=== PATIENT | female | born 2000 | race African-American/Black ===

== ENCOUNTER 2020-05-22 07:03 | Emergency (ER) | payer SELFPAY ==
[~2020-05-22 07:03] MED LIST: CARAFATE S500 MG/TSP PO; RANITIDINE HCL150 M1 PO; ZOFRAN4 MG PO
[2020-05-22] MEDS ORDERED: AMOXICILLIN875 MG PO (07:59)
[2020-05-22] MEDS ORDERED: PREDNISONE 20MG20 MG PO (07:59)
== END 2020-05-22 08:05 | disposition home or self-care (01) ==
LOC: FER 07:03
DX: J02.9 Acute pharyngitis, unspecified (principal)
CPT/HCPCS: 87880; 99283; J7512

== ENCOUNTER 2020-08-08 11:35 | Emergency (ER) | payer OTHER ==
[~2020-08-08 11:35] MED LIST changes: +AMOXICILLIN875 MG PO; +PREDNISONE 20MG20 MG PO
[2020-08-08 12:42] LABS: BASOPHIL 0.6 % (0-2); EOSINOPHIL 1.1 % (0-5); HGB 13.4 g/dl (12.5-16.0); LYMPHOCYTE 41.8 % (15-48); MCH 31.8 pg (25.0-31.0); MCHC 34.4 g/dL (32.0-36.0); MCV 92.6 fL (78.0-100.0); MONOCYTE 7.6 % (0-12); MPV 9.6 fL (6.0-9.5); NEUTROPHIL 48.6 % (41-80); NRBC 0; PLT 296 K/uL (150-400); RBC 4.21 M/uL (4.20-5.40); RDW 11.9 % (11.5-14.0); WBC 3.5 K/uL (4.0-10.5)
[2020-08-08 12:43] LABS: BILIRUBIN NEGATIVE (NEGATIVE); BLOOD NEGATIVE Ery/uL (NEGATIVE); CLARITY CLEAR (CLEAR); COLOR YELLOW (YELLOW); GLUCOSE (U) NORMAL (NORMAL); LEUKOCYTES NEGATIVE Leu/uL (NEGATIVE); NITRITE NEGATIVE (NEGATIVE); PROTEIN NEGATIVE (NEGATIVE); UROBILINOGEN 0.2 mg/dL (0.2-1.0)
[2020-08-08 12:45] LABS: HCG (URINE) SCREEN NEGATIVE (NEGATIVE)
[2020-08-08 12:49] LABS: INR 1.18 (0.9-1.2); PROTHROMBIN TIME 14.2 SECONDS (11.4-13.6); PTT 29.5 SECONDS (22.2-34.7)
[2020-08-08 12:50] LABS: D-DIMER 0.27 ug/mLFEU (0.00-0.41)
[2020-08-08 13:12] LABS: ALBUMIN 4.1 g/dL (3.4-5.0); BILIRUBIN - TOTAL 0.7 mg/dL (0.2-1.0); BUN/CREAT RATIO (CALC) 9.3 RATIO; CREATININE 0.86 mg/dL (0.51-0.95); GLOBULIN (CALCULATION) 3.2 g/dL; POTASSIUM 4.4 mmol/L (3.5-5.1); PRO-BNP 15 pg/mL (<125); TOTAL PROTEIN 7.3 g/dL (6.4-8.2)
[2020-08-08] MEDS ORDERED: NORCO 5-325 TA1 EACH PO (14:45)
[2020-08-08] MEDS ORDERED: REGLAN10 MG PO (14:45)
[2020-08-08] MEDS ORDERED: IMITREX50 MG PO (14:51)
== END 2020-08-08 15:25 | disposition home or self-care (01) ==
LOC: FER 11:35
PROVIDERS: Emergency Medicine
DX: G43.909 Migraine, unspecified, not intractable, without status migrainosus (principal); R55 Syncope and collapse; Z79.1 Long term (current) use of non-steroidal anti-inflammatories (NSAID); Z79.899 Other long term (current) drug therapy
CPT/HCPCS: 36415; 70450; 80053; 81003; 82728; 83540; 83735; 83880; 84145; 84484; 84703; 85025; 85379; 85610; 85730; 93005; J1200; J1885; J2765; J7030